=== PATIENT | female | born 1985 | race Caucasian/White ===

== ENCOUNTER 2016-12-05 23:16 | Emergency (ER) | payer OTHER ==
[2016-12-06] MEDS ORDERED: KETOROLAC TROMETHAMINE INJ/PF 30 MG/1 ML SDV IV ONE (00:04)
[2016-12-06] MEDS ORDERED: NORMAL SALINE 1000 ML 1,000 ML IV ONE (00:04)
[2016-12-06] MEDS ORDERED: MORPHINE SULFATE 10 MG/ML INJ IV PRN (00:04)
--- NOTE | 2016-12-06 00:23 | ER Document Report ---
ED General - General Chief Complaint: Abdominal and flank pain Stated Complaint: FLANK/ABDOMINAL PAIN Time Seen by Provider: 12/06/16 00:02 Notes: Patient is a 31-year-old female with past medical history of nephrolithiasis who presents with acute onset of right lower abdominal pain just prior to arrival. She describes it as a severe, stabbing, constant pain that has begun to remit without any intervention. She did not notice anything worsened or triggered the pain and states it woke her from sleep. She has had 2 similar episodes in the past which could not be clarified. She has had associated nausea and vomiting. Denies any vaginal discharge, dysuria, diarrhea, chest pain, upper abdominal pain, fever, weakness or numbness. She is currently on her menstrual cycle. TRAVEL OUTSIDE OF THE [place] IN LAST 30 DAYS: No - Related Data Allergies/Adverse Reactions: No Known Allergies Allergy (Unverified 08/13/11 20:22) Past Medical History - General Information source: Patient - Social History Smoking Status: Never Smoker Frequency of alcohol use: None Drug Abuse: None Lives with: Spouse/Significant other Family History: Reviewed & Not Pertinent Renal/ Medical History: Reports: Hx Kidney Stones. Denies: Hx Peritoneal Dialysis Past Surgical History: Reports: Hx Kidney (Renal Surgery) - Ureteral stent - Immunizations Hx Diphtheria, Pertussis, Tetanus Vaccination: No Review of Systems - Review of Systems Notes: Constitutional: Negative for fever. HENT: Negative for sore throat. Eyes: Negative for visual changes. Cardiovascular: Negative for chest pain. Respiratory: Negative for shortness of breath. Gastrointestinal: Positive for abdominal pain, vomiting Genitourinary: Negative for dysuria. Musculoskeletal: Negative for back pain. Skin: Negative for rash. Neurological: Negative for headaches, weakness or numbness. 10 point ROS negative except as marked above and in HPI. Physical Exam - Vital signs Vitals: Pulse Resp BP Pulse Ox 90 22 H 119/75 100 12/05/16 23:32 12/05/16 23:32 12/05/16 23:32 12/05/16 23:32 Interpretation: Normal Notes: PHYSICAL EXAMINATION: GENERAL: Appears to be in mild discomfort but no acute distress HEAD: Atraumatic, normocephalic. EYES: Pupils equal round and reactive to light, extraocular movements intact, sclera anicteric, conjunctiva are normal. ENT: nares patent, oropharynx clear without exudates. Moist mucous membranes. NECK: Normal range of motion, supple without lymphadenopathy LUNGS: Breath sounds clear to auscultation bilaterally and equal. No wheezes rales or rhonchi. HEART: Regular rate and rhythm without murmurs ABDOMEN: Soft, mild right adnexal tenderness. No right lower quadrant tenderness. Otherwise no focal tenderness. Normoactive bowel sounds. No guarding, no rebound. No masses appreciated. No CVA tenderness. EXTREMITIES: Normal range of motion, no pitting or edema. No cyanosis. NEUROLOGICAL: No focal neurological deficits. Moves all extremities spontaneously and on command. PSYCH: Normal mood, normal affect. SKIN: Warm, Dry, normal turgor, no rashes or lesions noted. Course - Re-evaluation Re-evalutation: 12/06/16 00:22 Patient presents with symptoms concerning for possible right-sided ovarian torsion. Patient does have an acute onset of severe right adnexal pain with associated vomiting. Notes the pain has somewhat diminished at this time reason the possibility of intermittent torsion. She is currently on her menstrual cycle. She denies any vaginal discharge, upper abdominal pain. Abdominal exam is without any focal tenderness be on the right adnexa. Clinical history is not consistent with an acute mesenteric ischemia, appendicitis, or acute biliary pathology. Will proceed with pain control, emergent transvaginal ultrasound, basic laboratories and reassessment. 12/06/16 02:31 Transvaginal ultrasound does not demonstrate any evidence of torsion to the right ovary, no evidence of a large mass that would with her to a torsion. Patient is now completely pain-free. Labs unremarkable. At this point, exact cause of patient's pain is unclear. Possible intermittent torsion remains a concern but given normal us, absence of any ongoing pain, this seems less likely. Will discuss with Dr. Coker who is sales account associate employment consultant. 12/06/16 03:16 She remains without any further tenderness. Urinalysis unremarkable. I discussed this case with GOVERNMENT PROFESSOR called Dr. Coker who agrees that there is a low probability of torsion or intermittent torsion at this time given the absence of a mass in the right ovary. The patient will follow-up in the office on Tuesday. I have reviewed extensively the patient the need to immediately return to the emergency department should she have any worsening of her pain or recurrence of her symptoms. I have also had a risks and benefits conversation with the patient regarding CT imaging of the abdomen and pelvis at this time. We discussed, based on today's exam and labs there is a possibility that they could have a diagnosis that could be better clarified by CT and that this could possibly private branch exchange service advisor. We discussed the risks of radiation to the abdomen and pelvis. We discussed the alternative of close follow-up with OBGYN for a recheck of the abdomen as well as reasons to return to the emergency department. After this conversation, the patient has elected to avoid CT imaging of the abdomen and pelvis at this time. They have capacity. They have verbalized the importance of close follow-up as well as reasons to return to the emergency department including worsening abdominal pain, fever, persistent vomiting, or any other symptoms that are worrisome to them. - Vital Signs Vital signs: Temp Pulse Resp BP Pulse Ox 98.6 F 62 16 104/58 L 98 12/06/16 03:28 12/06/16 03:28 12/06/16 03:28 12/06/16 03:28 12/06/16 03:28 - Laboratory Result Diagrams: 12/06/16 00:42 12/06/16 00:42 Laboratory results interpreted by me: 12/06/16 12/06/16 00:42 00:42 Hct 35.7 L Glucose 111 H - Diagnostic Test Radiology reviewed: Reports reviewed Discharge - Discharge Clinical Impression: Lower abdominal pain Condition: Good Disposition: HOME, SELF-CARE Additional Instructions: Please follow-[facility] with [facility] on Tuesday. Please return to the emergency department immediately if you have recurrence of the pain, vomiting, fever greater than 101F, or any other symptoms that are concerning to you. Referrals: [facility], [JACQUI DECKER] - Follow up as needed
[2016-12-06 00:54] LABS: ABSOLUTE EOSINOPHILS # (AUTO) 0.1 10^3/uL (0.0-0.6); ABSOLUTE LYMPHOCYTES (AUTO) 1.8 10^3/uL (0.5-4.7); ABSOLUTE MONOCYTES (AUTO) 0.5 10^3/uL (0.1-1.4); ABSOLUTE NEUT (AUTO) 6.8 10^3/uL (1.7-8.2); BASOPHILS % (AUTO) 0.5 % (0-2); HEMATOCRIT 35.7 % (36.0-47.0); HEMOGLOBIN 12.2 g/dL (12.0-15.5); HGB HCT DIFFERENCE 0.9; LYMPHOCYTES % (AUTO) 19.7 % (13-45); MEAN CORPUSCULAR HEMOGLOBIN 28.7 pg (27.0-33.4); MEAN CORPUSCULAR HGB CONC 34.1 g/dL (32.0-36.0); MEAN CORPUSCULAR VOLUME 84 fl (80-97); MONOCYTES % (AUTO) 5.7 % (3-13); RED BLOOD COUNT 4.23 10^6/uL (3.72-5.28); RED CELL DISTRIBUTION WIDTH 13.1 % (11.5-14.0); SEGMENTED NEUTROPHILS % (AUTO) 73.1 % (42-78); WHITE BLOOD COUNT 9.3 10^3/uL (4.0-10.5)
[2016-12-06 01:08] LABS: ANION GAP 13 (5-19); BLOOD UREA NITROGEN 19 mg/dL (7-20); CALCIUM 9.1 mg/dL (8.4-10.2); CARBON DIOXIDE 24 mmol/L (22-30); CHLORIDE 105 mmol/L (98-107); CREATININE RESULT 0.71 mg/dL (0.52-1.25); GLUCOSE 111 mg/dL (75-110); POTASSIUM 3.7 mmol/L (3.6-5.0); SODIUM 142.3 mmol/L (137-145)
[2016-12-06] MEDS ORDERED: ONDANSETRON HCL INJ/PF 4 MG/2 ML SDV IV ONE (01:28)
--- NOTE | 2016-12-06 01:35 | RADIOLOGY REPORT (SQ) ---
EXAM DESCRIPTION: U/S NON OB PEL TV W/DOPPLER COMPLETED DATE/TIME: 12/06/2016 1:13 am REASON FOR STUDY: eval r adnexal pain, torsion COMPARISON: None. TECHNIQUE: Dynamic and static grayscale images acquired of the pelvis via transvaginal approach and recorded on PACS. Additional selected color Doppler and spectral images recorded. LIMITATIONS: None. FINDINGS: UTERUS: Contour normal. No mass. ENDOMETRIAL STRIPE: No focal or generalized thickening. No masses. Mild heterogeneity. CERVIX: No nabothian cysts. RIGHT OVARY: No abnormal masses. RIGHT OVARY DOPPLER: Normal arterial vascular flow without evidence for torsion. LEFT OVARY: No abnormal masses. LEFT OVARY DOPPLER: Normal arterial vascular flow without evidence for torsion. FREE FLUID: None noted. OTHER: Pelvic vascular congestion pattern, nonspecific. MEASUREMENTS: UTERUS: 9 cm. ENDOMETRIAL STRIPE: 0.7 cm. RIGHT OVARY: 3 cm. LEFT OVARY: 2 cm. IMPRESSION: NORMAL TRANSVAGINAL PELVIC ULTRASOUND. TECHNICAL DOCUMENTATION: JOB ID: [id number] [employer]- All Rights Reserved
[2016-12-06 02:56] LABS: APPEARANCE,URINE CLEAR; BILIRUBIN,URINE NEGATIVE (NEGATIVE); GLUCOSE, URINE NEGATIVE (NEGATIVE); KETONES,URINE NEGATIVE (NEGATIVE); LEUKOCYTE ESTERASE,URINE NEGATIVE (NEGATIVE); NITRITE,URINE NEGATIVE (NEGATIVE); PROTEIN,URINE NEGATIVE (NEGATIVE); URINE SPECIFIC GRAVITY 1.002; UROBILINOGEN,URINE NEGATIVE mg/dL (<2.0)
[2016-12-06] MEDS ORDERED: ONDANSETRON 4 MG TAB.RAPDIS PO ONE (03:25)
[2016-12-06 03:32] VITALS: BP 104/58
== END 2016-12-06 03:34 | disposition home or self-care (01) ==
LOC: ER 23:16
DX: R10.31 Right lower quadrant pain (principal); R11.2 Nausea with vomiting, unspecified; Z87.442 Personal history of urinary calculi
CPT/HCPCS: 99284; 36415; 84703; 85025; 80048; 81001; 76830; 93976; J1885; J2405; J7030